=== PATIENT | female | born 1970 | race Caucasian/White ===

== ENCOUNTER 2016-04-08 05:52 | Observation (INO) | payer OTHER ==
[2016-04-08] MEDS ORDERED: CEFAZOLIN 2 GM/DEXTROSE/100 ML BAG IV ONE (06:00)
[2016-04-08] MEDS ORDERED: LIDOCAINE 1% 5 ML SDV ONE (06:01)
[2016-04-08] MEDS ORDERED: BUPIVACAINE/EPI 0.5% 30 ML SDV ONE (06:47)
[2016-04-08] MEDS ORDERED: SKIN ADHESIVE (DERMABOND) 1 EACH TP ONE (06:47)
[2016-04-08] MEDS ORDERED: LR 1,000 ML IV ONE (07:00)
[2016-04-08] MEDS ORDERED: PHENAZOPYRIDINE HCL 200 MG TAB PO ONE (07:00)
[2016-04-08] MEDS ORDERED: PYRIDOXINE HCL 100 MG TAB PO ONE (07:00)
[2016-04-08] MEDS ORDERED: MIDAZOLAM 2 MG/2 ML VIAL ONE ×2 (07:10→07:37)
[2016-04-08] MEDS ORDERED: fentaNYL 250 MCG/5 ML INJ ONE (07:12)
[2016-04-08] MEDS ORDERED: PROPOFOL/EMULSION 500 MG/50 ML BOTTLE IV ONE (07:12)
[2016-04-08] MEDS ORDERED: PROPOFOL 200 MG/20 ML VIAL ONE ×4 (07:12→09:56)
[2016-04-08] MEDS ORDERED: GLYCOPYRROLATE 0.2 MG/1 ML VIAL ONE (07:12)
[2016-04-08] MEDS ORDERED: ROCURONIUM 100 MG/10 ML VIAL ONE (07:12)
[2016-04-08] MEDS ORDERED: LIDOCAINE 2% 5 ML SDV ONE (07:12)
[2016-04-08] MEDS ORDERED: KETOROLAC 30 MG/1 ML SDV ONE (07:12)
[2016-04-08] MEDS ORDERED: DEXAMETHASONE 4 MG/ML VIAL ONE (07:12)
[2016-04-08] MEDS ORDERED: ceFAZolin 2 GM/DEXTROSE 100 ML IV ONE (07:30)
[2016-04-08] MEDS ORDERED: ONDANSETRON 4 MG/2 ML VIAL ONE (07:45)
[2016-04-08] MEDS ORDERED: fentaNYL 100 MCG/2 ML INJ ONE (08:42)
[2016-04-08] MEDS ORDERED: HYDROmorphONE/DILAUDID 2 MG/ML SYR ONE (08:43)
[2016-04-08] MEDS ORDERED: SUGAMMADEX SODIUM 200 MG/2 ML VIAL IVP ONE (09:32)
[2016-04-08] MEDS ORDERED: LR 1,000 ML IV SCH (10:30)
[2016-04-08] MEDS ORDERED: ONDANSETRON 4 MG/2 ML VIAL IVP PRN (10:30)
--- NOTE | 2016-04-08 10:30 | POSTOPPROG ---
Post Op Note Date of Operation: 04/08/16 Surgeon: Mega Murillo Authorization Representative: Roselyn Fuller Anesthesiologist: Radha Sanchez Anesthesia: GET(General Endotracheal) Pre-op Diagnosis: Uterovaginal prolapse, stress incontinence Post-op Diagnosis: Same Procedure: Robotic hyst, sacrocolpopexy, TOT sling, cysto Findings: Enlarged fibroid uterus Inf/Abcess present in the surg proc area at time of surgery?: No EBL: Minimal Complications: None Specimen(s): Ureters function at end of case.
--- NOTE | 2016-04-08 12:02 | GOP ---
[f rep st] OPERATIVE REPORT DATE OF OPERATION: 04/08/2016 SURGEON: Mega Murillo MD JUNK DEALER: Roselyn Fuller CFA ANESTHESIA: General. PREOPERATIVE DIAGNOSIS: 1. Dysmenorrhea. 2. Menorrhagia. 3. Uterine prolapse. 4. Cystocele. 5. Rectocele. 6. Stress urinary incontinence. POSTOPERATIVE DIAGNOSIS: 1. Dysmenorrhea. 2. Menorrhagia. 3. Uterine prolapse. 4. Cystocele. 5. Rectocele. 6. Stress urinary incontinence. PROCEDURE PERFORMED: 1. Robotic-assisted laparoscopic hysterectomy, bilateral salpingectomy. 2. Robotic-assisted laparoscopic sacrocervicopexy with mesh. 3. Repair of cystocele and rectocele. 4. Perineorrhaphy. 5. Transobturator sling. 6. Cystoscopy. FINDINGS: SPECIMENS: Uterus, bilateral tubes. ESTIMATED BLOOD LOSS: Scant. DESCRIPTION OF PROCEDURE: The patient was taken to the operating room where she was identified. Gen eral anesthesia was administered and found to be adequate. She was placed in the lithotomy position and prepped and draped in normal sterile fashion. A Zuleta catheter was placed in her bladder. A 1 cm infraumbilical incision was made with a scalpel. The Veress needle with the CO2 gas flowing w as advanced into the peritoneal cavity. The abdomen was then insufflated with carbon dioxide gas. T he 12 mm trocar followed by the laparoscope was then inserted. The upper abdomen was unremarkable. Two lateral ports were placed, one on the right and one on the left, under direct visualization. She then was placed in Trendelenburg position and the da Yuri robot docked on the left side. The instr uments were then brought into the abdominal cavity under direct visualization. The left fallopian tu be was along the mesosalpinx. The utero-ovarian ligament followed by the round ligament we re then cauterized and transected. The anterior leaf of the broad ligament was then incised over the left uterine vessels and across the cervix. The bladder was gently dissected off the cervix and upp er vagina. The left uterine vessels were then cauterized and transected. The exact same procedure w as performed on the patient's right side. The uterus was then bivalved to aid in removal through the umbilicus. The uterus and upper 2/3 of the cervix were amputated from the lower 3rd of the cervix w ith the hot gopi. The specimen was then placed in the right upper quadrant for later removal. The Colpo-Probe was placed in the vagina. The bladder was further dissected off the anterior vaginal wall down to the level of bladder neck. The rectovaginal space was then entered and the rectum diss ected off the posterior vaginal wall down to the level of the perineal body. Measurements were then obtained and the mesh trimmed to size. The sigmoid colon was then retracted laterally. The sacral promontory was identified and overlying p eritoneum incised. The fat pad was gently dissected off the anterior longitudinal ligament. The per itoneal incision was then extended along the right pericolic gutter medial to the right ureter and la teral to the sigmoid colon until it met the rectovaginal opening. The cervical stump was closed with a xjbied-be-scxic suture of 0 Monocryl. The mesh was then brought into the abdominal cavity. Three sutures of 4-0 [place]-Jadon were used to attach the distal posterior m esh to the perineal body. Two additional rows of [place]-Jadon suture were placed posteriorly. The anter ior mesh was sutured down to the level of the bladder neck and laterally to the paravaginal tissue. The Colpo-Probe was then removed. The sacral arm of the mesh was placed over the promontory and the tension adjusted. I then scrubbed back into the case to examine the vagina. The tension was further adjusted to resolve the cystocele and rectocele without undue tension on the vagina. Three sutures of 2-0 [place]-Jadon were used to attach the sacral arm of the mesh to the anterior longitudinal ligament at the level of the upper sacral-1 body below the intervertebral disk space. The excess mesh was the n trimmed. The pelvis was irrigated with sterile saline and hemostasis was present. Three 0 V-Loc 9 0 suture was used to close the peritoneum over the entire mesh. The robot was then undocked. The specimen was removed through the umbilicus. The fascia was closed with 0 Vicryl, the skin with 4-0 Monocryl and surgical adhesive. Attention was then turned to the sling portion of procedure. A mid-urethral incision was made with a scalpel. Tunnels were created bilaterally out to the obturator internus muscles. Skin incisions we re made over the obturator notches. The Halo trocar was placed through the left skin incision, redir ected around the ischial pubic ramus, and out through the vaginal incision using a vaginal finger as a guide. The lateral sulcus was examined and no evidence of vaginal injury had occurred. The sling was then attached and brought out along the same course. The exact same procedure was performed on t he patient's right side. The sling was then adjusted to allow a small mid-urethral gap. The vaginal skin was closed with 2-0 Vicryl, the skin 4-0 Monocryl. Cystoscopy was then performed. Both ureters had vigorous jets of urine. There was no evidence of bl adder nor urethral injury seen. No mesh nor sutures were seen within the bladder nor urethra. Attention was then turned to the perineorrhaphy. A transverse incision was made along the perineal b iris. The posterior vaginal epithelium was undermined with the Metzenbaum scissors and incised sagitt ally. The epithelium was gently dissected off at the underlying rectovaginal connective tissue. The connective tissue was then plicated with interrupted sutures of 0 Vicryl. The bulbous spongiosis an d transverse perineal muscles were then plicated in the midline also with 0 Vicryl suture. The exces s vaginal epithelium was then trimmed. The epithelium was closed with a running 2-0 Vicryl suture. Vaginal packing was then placed, anesthesia was reversed, and patient taken to the PACU awake and in stable condition. COMPLICATIONS: None. DISPOSITION: Patient stable to PACU. /[id number]/MODL
[2016-04-08] MEDS: HYDROCODONE/APAP 5/325 TAB PO PRN ×2 (14:29→20:39)
[2016-04-08] MEDS: SIMETHICONE 80 MG TAB CHEW PO SCH ×3 (14:40→22:48)
[2016-04-08] MEDS: KETOROLAC 30 MG/1 ML SDV IVP PRN ×2 (17:08→22:47)
[2016-04-08] MEDS ORDERED: QUEtiapine FUMARATE 25 MG TAB PO PRN (17:38)
[2016-04-08] MEDS ORDERED: PROMETHAZINE HCL 25 MG/ML INJ IV PRN (17:39)
[2016-04-08] MEDS: lamoTRIgine 100 MG TAB PO SCH (22:13)
[2016-04-08] MEDS: DOCUSATE SODIUM 100 MG CAP PO SCH (23:24)
[2016-04-09] MEDS: HYDROCODONE/APAP 5/325 TAB PO PRN ×3 (00:34→09:01)
[2016-04-09 01:15] VITALS: RESP 16
[2016-04-09] MEDS: KETOROLAC 30 MG/1 ML SDV IVP PRN (05:26)
[2016-04-09 05:54] LABS: HEMATOCRIT 36.1 % (38.0-47.0)
[2016-04-09 08:11] VITALS: BP 88/58; TEMP 98.2; O2SAT 94
[2016-04-09 08:31] VITALS: PULSE 74
--- NOTE | 2016-04-09 08:49 | SOAPPROG ---
SOAP Progress Note Assessment/Plan: Assessment: Doing well, no issues. Plan: 04/09/16 08:46 Check PVR. Home today. F/U in 2 weeks. Subjective: No complaints. Pain controlled. Ambulating and tolerating a general diet. No void attempt yet. Objective: Vital Signs Temp Pulse Resp BP Pulse Ox 36.8 C 74 16 88/58 L 94 04/09/16 08:28 04/09/16 08:28 04/09/16 08:28 04/09/16 08:28 04/09/16 08:28 Laboratory Results 04/09/16 05:35 04/08/16 04/09/16 04/10/16 05:59 05:59 05:59 Intake Total 2600 Output Total 2950 Balance -350 - Pending Discharge Pending Discharge Within 24 Hours: Yes Pending Discharge Date: 04/10/16 Pending Discharge Time: 11:00 Physical Exam - Physical Exam General Appearance: WD/WN, alert, no apparent distress Respiratory: lungs clear Cardiac/Chest: regular rate, rhythm Abdomen: normal bowel sounds, non-tender, soft (Incisions clean, dry, and intact.) ICD10 Worksheet Patient Problems: Problems Problem Status Diagnosed Cystocele Acute Incomplete uterovaginal prolapse Acute Intramural leiomyoma of uterus Acute - ICD10 Problem Qualifiers (1) Incomplete uterovaginal prolapse (2) Cystocele (3) Intramural leiomyoma of uterus
[2016-04-09] MEDS: lamoTRIgine 100 MG TAB PO SCH (09:01)
[2016-04-09] MEDS: DOCUSATE SODIUM 100 MG CAP PO SCH (09:01)
[2016-04-09] MEDS: SIMETHICONE 80 MG TAB CHEW PO SCH (09:01)
--- NOTE | 2016-04-09 12:17 | GDS ---
[f rep st] DISCHARGE SUMMARY DISCHARGE DIAGNOSES: 1. Symptomatic uterovaginal prolapse. 2. Menorrhagia. 3. Dysmenorrhea. 4. Uterine fibroids. 5. Stress urinary incontinence. PROCEDURES: 1. Robotic-assisted laparoscopic hysterectomy, bilateral salpingectomy. 2. Robotic-assisted laparoscopic sacrocervicopexy with mesh. 3. Repair of cystocele and rectocele. 4. Perineorrhaphy. 5. Transobturator sling. 6. Cystoscopy. HISTORY: The patient was brought to the operating room on 04/08/2016 to treat her prolapse and heavy menses secondary to fibroids. She underwent the above-mentioned procedures without complications. Her postoperative course was uneventful. The morning after surgery she was ambulating, voiding, and tolerating a general diet. She was discharged home on postoperative day #1 in good condition. Medic ations included Marmaduke and ibuprofen for pain. She is to follow up in the office 2 weeks after discha rge for an incision check. /[id number]/MODL
== END 2016-04-09 11:15 | disposition home or self-care (01) ==
LOC: F3N 05:52 → FOB 11:49
PROVIDERS: ADMIT Obstetrics & Gynecology; ATTEND Obstetrics & Gynecology
PROC: 0UT94ZZ Resection of Uterus, Percutaneous Endoscopic Approach (ICD-10-PCS; principal; 2016-04-08 07:15)
PROC: 0UT74ZZ Resection of Bilateral Fallopian Tubes, Percutaneous Endoscopic Approach (ICD-10-PCS; 2016-04-08 07:15)
PROC: 0UUG4JZ Supplement Vagina with Synthetic Substitute, Percutaneous Endoscopic Approach (ICD-10-PCS; 2016-04-08 07:15)
PROC: 0TUC0JZ Supplement Bladder Neck with Synthetic Substitute, Open Approach (ICD-10-PCS; 2016-04-08 07:15)
PROC: 0DQP0ZZ Repair Rectum, Open Approach (ICD-10-PCS; 2016-04-08 07:15)
PROC: 8E0W8CZ Robotic Assisted Procedure of Trunk Region, Via Natural or Artificial Opening Endoscopic (ICD-10-PCS; 2016-04-08 07:15)
DX: N81.2 Incomplete uterovaginal prolapse (principal); N39.3 Stress incontinence (female) (male); N81.11 Cystocele, midline; N81.6 Rectocele; D25.9 Leiomyoma of uterus, unspecified; N92.4 Excessive bleeding in the premenopausal period; N94.6 Dysmenorrhea, unspecified
CPT/HCPCS: 57250; 57288; 57425; 58571; G0378; C1763; C1771; J0690; J1100; J1170; J1885; J2250; J2405; J2550; J2704; J3010

== ENCOUNTER → 2016-06-08 | Outpatient (CLI) | payer OTHER | LOC: BMCIMAGING 12:54 | DX: Z09 Encounter for follow-up examination after completed treatment for conditions other than malignant neoplasm (principal); R92.8 Other abnormal and inconclusive findings on diagnostic imaging of breast | CPT/HCPCS: G0206 ==

== ENCOUNTER → 2016-10-07 | Outpatient (CLI) | payer OTHER | LOC: FIMAGING 08:11 | PROVIDERS: ATTEND Midwife | DX: N83.201 Unspecified ovarian cyst, right side (principal); N83.02 Follicular cyst of left ovary; Z90.711 Acquired absence of uterus with remaining cervical stump ==

== ENCOUNTER → 2016-11-10 | Outpatient (CLI) | payer OTHER | LOC: FIMAGING 09:59 | PROVIDERS: ATTEND Obstetrics & Gynecology | DX: N83.202 Unspecified ovarian cyst, left side (principal); N83.201 Unspecified ovarian cyst, right side; Z90.710 Acquired absence of both cervix and uterus ==

== ENCOUNTER → 2017-01-13 | Outpatient (CLI) | payer OTHER | LOC: FIMAGING 11:22 | PROVIDERS: ATTEND Obstetrics & Gynecology | DX: N83.201 Unspecified ovarian cyst, right side (principal); Z90.710 Acquired absence of both cervix and uterus ==

== ENCOUNTER → 2017-07-13 | Outpatient (CLI) | payer OTHER | LOC: FIMAGING 09:43 | PROVIDERS: ATTEND Family Medicine | DX: Z12.31 Encounter for screening mammogram for malignant neoplasm of breast (principal) ==

== ENCOUNTER → 2017-07-26 | Outpatient (CLI) | payer OTHER | LOC: FIMAGING 09:30 | PROVIDERS: ATTEND Family Medicine | DX: R92.0 Mammographic microcalcification found on diagnostic imaging of breast (principal) ==

== ENCOUNTER → 2017-08-03 | Day surgery (SDC) | payer OTHER ==
[~2017-08-03] MED LIST: BUPIVACAINE 0.5% 30 ML SDV ONE; LIDOCAINE 1% 300 MG/30 ML SDV ONE; THROMBIN (BOVINE) 5,000 UNIT VIAL TP ONE
== END | disposition home or self-care (01) ==
LOC: FIMAGING 07:18
PROVIDERS: ATTEND Family Medicine
PROC: 0HBT3ZX Excision of Right Breast, Percutaneous Approach, Diagnostic (ICD-10-PCS; principal; 2017-08-03)
DX: D05.11 Intraductal carcinoma in situ of right breast (principal)

== ENCOUNTER → 2017-08-12 | Outpatient (CLI) | payer OTHER ==
[~2017-08-12] MED LIST changes: -BUPIVACAINE 0.5% 30 ML SDV ONE; +GADOBUTROL 10 ML VIAL IVP ONE; -LIDOCAINE 1% 300 MG/30 ML SDV ONE; -THROMBIN (BOVINE) 5,000 UNIT VIAL TP ONE
== END ==
LOC: FIMAGING 10:13
PROVIDERS: ATTEND Surgery
DX: D05.11 Intraductal carcinoma in situ of right breast (principal)
CPT/HCPCS: 0159T; A9585; C8908